=== PATIENT | female | born 1990 | race African-American/Black ===

== ENCOUNTER 2019-08-30 04:58 | Inpatient (IN) ==
[2019-08-30] MEDS ORDERED: LACTATED RINGERS 1,000 ML IV ONE (05:30)
[2019-08-30] MEDS ORDERED: ONDANSETRON 4 MG/2 ML VIAL IV PRN (05:36)
[2019-08-30] MEDS ORDERED: BUTORPHANOL 2 MG/ML VIAL IV PRN (05:36)
[2019-08-30] MEDS ORDERED: BUTORPHANOL 1 MG/ML VIAL IV PRN (05:36)
[2019-08-30] MEDS ORDERED: MEPERIDINE 50 MG/1 ML VIAL IV PRN (05:36)
[2019-08-30] MEDS ORDERED: OXYTOCIN/LR 20 UNIT/1,000 ML BAG IV SCH (06:00)
[2019-08-30] MEDS ORDERED: LACTATED RINGERS 1,000 ML IV SCH (06:00)
[2019-08-30 06:02] LABS: Basophils % 0.3 % (0.0-0.8); Eosinophils # 0.1 10*3/uL (0.0-0.87); Eosinophils % 1.2 % (0.00-10.9); Hematocrit 37.4 VOL% (35.7-47.0); Hemoglobin 11.9 GM/DL (12.0-16.0); Immature Granulocytes % 0.4 %; Immature Granulocytes Absolute 0.04 #; Lymphocytes # 3.3 10*3/uL (1.4-4.0); Lymphocytes % 33.1 % (21.3-54.2); Mean Corpuscular HGB Conc 31.8 GM/DL (32-36); Mean Corpuscular Volume 80.8 FL (87-102); Mean Platelet Volume 10.5 FL (9.6-12.0); Monocytes % 5.6 % (1.7-12.7); NRBC # 0.02 10*3/uL; Neutrophils % 59.4 % (38.7-73.9); Platelet Count 349 T/CUMM (130-400); Red Blood Count 4.63 MC/CUMM (3.8-5.5); Red Cell Distribution Width 15.9 % (9.3-17.3)
[2019-08-30] MEDS ORDERED: ONDANSETRON 4 MG/2 ML VIAL IV ONE (06:12)
[2019-08-30] MEDS ORDERED: FAMOTIDINE 20 MG/2 ML VIAL IV ONE (06:12)
[2019-08-30] MEDS ORDERED: diphenhydrAMINE 50 MG/1 ML VIAL IV PRN ×2 (06:12)
[2019-08-30] MEDS ORDERED: CITRIC ACID/SODIUM CITRATE 30 ML UDCUP PO ONE (06:12)
[2019-08-30] MEDS ORDERED: NALOXONE 0.4 MG/ML VIAL IV PRN (06:12)
[2019-08-30] MEDS ORDERED: hydrOXYzine HCL 25 MG/1 ML VIAL IM PRN (06:12)
[2019-08-30] MEDS ORDERED: PROMETHAZINE 25 MG/1 ML VIAL IM ONE (06:12)
[2019-08-30] MEDS ORDERED: fentaNYL 2 MCG/ROPIV 0.2% EPID 100 ML EPIDURAL SCH (06:30)
[2019-08-30 06:36] LABS: Albumin 2.8 G/DL (3.4-5.0); Bilirubin,Total 0.5 MG/DL (0.2-1.0); Calcium 9.4 MG/DL (8.5-10.1); Osmolality,Calculated 265.1 MOS/KG (273-304)
[2019-08-30] MEDS: ePHEDrine 50 MG/ML AMP IV PRN ×2 (07:41→07:46)
[2019-08-30 09:05] LABS: Apearance,Urine CLEAR (Clear); Bilirubin,Urine Negative (Negative); Blood, Urine Negative (Negative); Glucose,Urine (UA) Negative (Negative); Ketones,Urine 20 mg/dL (Negative); Mucus,Urine Occasional /LPF (Occasional); Nitrite,Urine Negative (Negative); Protein,Urine Negative; RBC,Urine 1 /HPF (0-4); Urine Color Yellow (Yellow); Urine Urobilinogen < 2.0 EU/DL (0.2-1.0); WBC,Urine <1 /HPF (0-6)
[2019-08-30] MEDS ORDERED: miSOPROStoL 200 MCG TABLET ONE (13:20)
[2019-08-30] MEDS ORDERED: METHYLERGONOVINE 0.2 MG/1 ML AMP ONE (13:20)
[2019-08-30] MEDS ORDERED: ACETAMINOPHEN 325 MG TABLET PO PRN (15:41)
[2019-08-30] MEDS ORDERED: DIPH/TET/ACEL PERT BOOSTER VACCINE 0.5 ML VIAL IM ONE (15:41)
[2019-08-30] MEDS ORDERED: OXYTOCIN/LR 20 UNIT/1,000 ML BAG IV ONE (15:41)
[2019-08-30] MEDS ORDERED: oxyCODONE/ACETAMINOPHEN 5-325 MG TABLET PO PRN ×2 (15:41)
[2019-08-30] MEDS ORDERED: BISACODYL 10 MG SUPP RECTAL PRN (15:41)
[2019-08-30] MEDS ORDERED: RHO(D) IMMUNE GLOBULIN 300 MCG SYRINGE IM ONE (15:41)
[2019-08-30] MEDS ORDERED: HYDROCORTISONE 2.5% RECTAL CREAM 30 GM TUBE TOP PRN (15:41)
[2019-08-30] MEDS ORDERED: MEASLES/MUMPS/RUBELLA VACCINE 0.5 ML VIAL SUBCUT ONE (15:41)
[2019-08-30] MEDS ORDERED: BENZOCAINE 20%/MENTHOL 0.5% SPRAY 56 GM CAN TOP PRN (15:41)
[2019-08-30] MEDS ORDERED: WITCH HAZEL PADS 100/JAR TOP PRN (15:41)
[2019-08-30] MEDS ORDERED: LANOLIN 50% CREAM 0.3 OZ TUBE TOP PRN (15:41)
[2019-08-30] MEDS: IBUPROFEN 800 MG TABLET PO PRN ×2 (16:10→21:50)
[2019-08-30] MEDS: DOCUSATE SODIUM 100 MG CAPSULE PO SCH (21:46)
[2019-08-31 05:18] LABS: Basophils % 0.3 % (0.0-0.8); Eosinophils # 0.3 10*3/uL (0.0-0.87); Eosinophils % 2.1 % (0.00-10.9); Hematocrit 28.8 VOL% (35.7-47.0); Hemoglobin 9.1 GM/DL (12.0-16.0); Immature Granulocytes % 0.5 %; Immature Granulocytes Absolute 0.08 #; Lymphocytes # 3.4 10*3/uL (1.4-4.0); Lymphocytes % 23.4 % (21.3-54.2); Mean Corpuscular HGB Conc 31.6 GM/DL (32-36); Mean Corpuscular Volume 81.4 FL (87-102); Mean Platelet Volume 10.5 FL (9.6-12.0); Monocytes % 5.1 % (1.7-12.7); Neutrophils % 68.6 % (38.7-73.9); Platelet Count 259 T/CUMM (130-400); Red Blood Count 3.54 MC/CUMM (3.8-5.5); Red Cell Distribution Width 15.9 % (9.3-17.3); White Blood Count 14.6 T/CUMM (4-12)
[2019-08-31] MEDS: DOCUSATE SODIUM 100 MG CAPSULE PO SCH ×2 (08:57→22:04)
[2019-08-31] MEDS: IBUPROFEN 800 MG TABLET PO PRN ×3 (08:58→22:04)
[2019-09-01] MEDS: IBUPROFEN 800 MG TABLET PO PRN (07:08)
[2019-09-01 07:31] VITALS: BP 106/65
[2019-09-01] MEDS: DOCUSATE SODIUM 100 MG CAPSULE PO SCH (09:45)
== END 2019-09-01 12:30 | disposition home or self-care (01) | DRG 560 ==
LOC: N.LDOUT 04:58 → N.LD 05:06 → N.OB 15:52
PROVIDERS: ADMIT Obstetrics & Gynecology; ATTEND Obstetrics & Gynecology